=== PATIENT | male | born 1955 | race Caucasian/White ===

== ENCOUNTER → 2016-06-27 | Outpatient (CLI) | payer OTHER ==
[~2016-06-27] MED LIST: ASPI-113 PO; CLB/200 PO; LRT5 PO; LSN/10125 PO; OXYC-409 PO
[2016-06-27 12:51] LABS: HEMATOCRIT 46.3 % (42-52); MEAN CELL VOLUME 90.3 fL (80-100); MEAN CORPUSCULAR HEMOGLOBIN 31.4 pg (25-34); MEAN CORPUSCULAR HGB CONC 34.8 g/dl (32-36); MEAN PLATELET VOLUME 10.5 fL (7.4-10.4); PLATELET COUNT 217 K/uL (130-400); RED BLOOD COUNT 5.13 M/uL (4.7-6.1)
[2016-06-27 13:19] LABS: ALT/SGPT 37 U/L (12-78); BLOOD UREA NITROGEN 16 mg/dl (7-18); BUN/CREATININE RATIO 17.3 (10-20); CARBON DIOXIDE 26 mmol/L (21-32); CHLORIDE 106 mmol/L (98-107); CHOLESTEROL 141 mg/dl (0-200); CREATININE 0.92 mg/dl (0.60-1.40); GLUCOSE 96 mg/dl (70-99); POTASSIUM 3.8 mmol/L (3.5-5.1); SODIUM 141 mmol/L (136-145); TRIGLYCERIDES 130 mg/dl (0-150); VERY LOW DENSITY LIPOPROT CALC 26 mg/dl
[2016-06-27 13:23] LABS: ALB/GLOB RATIO 1.3 (0.9-2); ALKALINE PHOSPHATASE 91 U/L (45-117); AST/SGOT 20 U/L (15-37); CHOLESTEROL/HDL RATIO 2.9; HDL CHOLESTEROL 49 mg/dl; LDL CHOLESTEROL CALCULATED 66 mg/dl
== END | disposition home or self-care (01) ==
LOC: C.LABPBG 08:51
PROVIDERS: ATTEND Internal Medicine Geriatric Medicine
DX: Z00.00 Encounter for general adult medical examination without abnormal findings (principal); I10 Essential (primary) hypertension; F52.8 Other sexual dysfunction not due to a substance or known physiological condition

== ENCOUNTER → 2017-03-13 | Day surgery (SDC) | payer OTHER ==
[2017-03-06 07:57] VITALS: BMI 28.0
[~2017-03-13] VITALS: Ht 175.3 cm; Wt 88.6 kg
[~2017-03-13] MED LIST changes: +ALBUT/IPRATROP 3MG/0.5MG NEB 3 ML VIAL INH SCH; -ASPI-113 PO; -CLB/200 PO; +LIDOCAINE HCL 2% 2 ML VIAL (20MG/ML) ONE; -LRT5 PO; +MIDAZOLAM HCL 1 MG/ML 2ML VIAL ONE; -OXYC-409 PO; +PROPOFOL IV EMULSION 10 MG/ML 20 ML VIAL IV ONE; +SODIUM CHLORIDE 0.9% 500ML 500 ML IV ONE
[2017-03-13 09:27] VITALS: Ht 175.3 cm; Wt 88.6 kg
--- NOTE | 2017-03-13 09:41 | Endo History and Physical ---
History & Physical Date of Service: Mar 13, 2017. Chief Complaint: SCREENING FOR COLON CANCER Referring Physician: JAMISON MILLER History of Present Illness 61 yo CM who presents for screening colonoscopy. Past Surgical History Hx Cardiac Surgery: No Hx Internal Defibrillator: No Hx Pacemaker: No Hx Abdominal Surgery: Yes (APPY) Hx of Implantable Prosthesis: No Hx Post-Op Nausea and Vomiting: No Hx Cancer Surgery: No Hx Thoracic Surgery: No Hx Orthopedic: Yes (RT/LT MIGUEL ANGEL) Hx Urinary Tract Surgery: No Family History None Social History Smoking Status: Never Smoker Hx Substance Use: No Hx Alcohol Use: No Allergies Coded Allergies: Chlorhexidine (Verified Allergy, Mild, red blotchy areas where applied, ) pt denies any pruritis associated with reddened areas Current Medications Reported Home Medications Medications Dose Route/Sig Max Daily Dose Days Date Category Lisinopril/Hctz 03/01.5 Mg (HCTZ/Lisinopril) 1 Ea Tab 1 Tab PO QAM 02/22/12 Reported Vital Signs Weight (Kilograms): 88.64 Height (Feet): 5 Height (Inches): 9 Date Time Temp Pulse Resp B/P (MAP) Pulse Ox O2 Delivery O2 Flow Rate FiO2 03/13/17 09:37 36.6 60 18 117/81 (93) 96 Room Air Physical Exam General Appearance: WD/WN, no apparent distress Respiratory/Chest: Auscultation: breath sounds normal Cardiovascular: Heart Auscultation: RRR Abdomen: Bowel Sounds: normal Inspection & Palpation: soft, non-distended, no tenderness, guarding & rebound Assessment and Plan Assessment: 61 yo CM who presents for screening colonoscopy. Plan: Proceed with colonoscopy.
--- NOTE | 2017-03-13 10:19 | GI REPORT ---
Procedure Date: 03/13/2017 9:51 AM Procedure: Colonoscopy Indications: Screening for colorectal malignant neoplasm Medicines: Monitored Anesthesia Care Complications: No immediate complications. Estimated Blood Loss: Estimated blood loss: none. Procedure: Pre-Anesthesia Assessment: - Prior to the procedure, a History and Physical was performed, and patient medications and allergies were reviewed. The patient's tolerance of previous anesthesia was also reviewed. The risks and benefits of the procedure and the sedation options and risks were discussed with the patient. All questions were answered, and informed consent was obtained. Prior Anticoagulants: The patient has taken no previous anticoagulant or antiplatelet agents. ASA Grade Assessment: II - A patient with mild systemic disease. After reviewing the risks and benefits, the patient was deemed in satisfactory condition to undergo the procedure. After I obtained informed consent, the scope was passed under direct vision. Throughout the procedure, the patient's blood pressure, pulse, and oxygen saturations were monitored continuously. The scope was introduced through the anus and advanced to the terminal ileum. The colonoscopy was performed without difficulty. The patient tolerated the procedure well. The quality of the bowel preparation was good. The terminal ileum, ileocecal valve, appendiceal orifice, and rectum were photographed. Findings: A 4 mm polyp was found in the transverse colon. The polyp was sessile. The polyp was removed with a cold snare. Resection and retrieval were complete. Multiple small-mouthed diverticula were found in the sigmoid colon. Non-bleeding internal hemorrhoids were found during retroflexion. The hemorrhoids were small. Impression: - One 4 mm polyp in the transverse colon, removed with a cold snare. Resected and retrieved. - Diverticulosis in the sigmoid colon. - Non-bleeding internal hemorrhoids. Recommendation: - Resume previous diet. - Continue present medications. - Repeat colonoscopy for surveillance based on pathology results. - Return to primary care physician as previously scheduled. Juan Ramirez DO 03/13/2017 10:18:57 AM This report has been signed electronically. Note Initiated On: 03/13/2017 9:51 AM I attest to the content of the Intraoperative Record and orders documented therein, exceptions below
[2017-03-13 10:36] VITALS: PULSE 76; O2SAT 90
[2017-03-13 11:04] VITALS: BP 122/86; PULSE 81
--- NOTE | 2017-03-13 11:10 | Discharge Instructions ---
Endoscopy Patient Instructions Date / Procedure(s) Performed Mar 13, 2017. Colonoscopy Allergy Information Coded Allergies: Chlorhexidine (Verified Allergy, Mild, red blotchy areas where applied, ) pt denies any pruritis associated with reddened areas Discharge Date / Findings Mar 13, 2017. Colon polyp Diverticulosis Internal hemorrhoids Medication Instructions OK to resume all medications today as prescribed Reported Home Medications Medications Dose Route/Sig Max Daily Dose Days Date Category Lisinopril/Hctz 03/01.5 Mg (HCTZ/Lisinopril) 1 Ea Tab 1 Tab PO QAM 02/22/12 Reported Provider Instructions Activity Restrictions - No exercising or heavy lifting for 24 hours. - Do not drink alcohol the day of the procedure. - Do not drive a car or operate machinery until the day after the procedure. - Do not make any important decisions or sign important papers in 24 hours after the procedure. Following Day: - Return to full activity which may include returning to work/school. Diet Start your diet with liquids and light foods (jello, soup, juice, toast). Then eat your usual diet if not nauseated. Treatment For Common After Affects For mild abdominal pain, bloating, or excessive gas: - Rest - Eat lightly - Lie on right side Follow-Up Information Follow-up with JAMISON MILLER as scheduled Anesthesia Information What You Should Know You have had a procedure that required some medicine to reduce anxiety and discomfort. This treatment is called moderate sedation. After receiving the treatment, you may be sleepy, but you will be able to breathe on your own. The effects of the treatment may last for several hours. Follow these instructions along with Activity/Diet recommendations noted above: * Do NOT do anything where dizziness or clumsiness would be dangerous. * Rest quietly at home today, then you can be up and about tomorrow. * Have a responsible person stay with you the rest of today. * You may have had an I.V. today. If so, you may take the dressing off later today. Recommendations Call your doctor if: * Trouble breathing * Continuous vomiting for more than 24 hours * Temperature above 101 degrees * Severe abdominal pain or bloating * Pain not relieved by pain medicine ordered * There is increased drainage or redness from any incision * A large amount of rectal bleeding greater than 2-3 tablespoons. (If you had a polyp/s removed or have hemorrhoids, a small amount of blood - from the rectum is to be expected.) * You have any unanswered questions or concerns. IN THE EVENT OF A SERIOUS EMERGENCY, GO TO THE NEAREST EMERGENCY ROOM Your discharge instructions were prepared by provider Juan Ramirez. Patient Instructions Signature Page Shelia Modi Patient (or Guardian) Signature/Date: I have read and understand the instructions given to me by my caregivers. Caregiver/RN/Doctor Signature/Date: The above-named patient and/or guardian has received patient instructions on this date. + Original Patient Signature Page (only) stays with chart. Please make copy for patient.
[2017-03-13 11:30] VITALS: O2SAT 90
--- NOTE | 2017-03-13 11:35 | DIAGNOSTIC IMAGING REPORT ---
CHEST ONE VIEW PORTABLE CLINICAL HISTORY: possible aspiration dyspnea COMPARISON STUDY: No previous studies for comparison. FINDINGS: The bones soft tissues and hemidiaphragms are normal. The cardiomediastinal silhouette is normal. The lungs are clear. The pulmonary vasculature is normal. IMPRESSION: Negative chest. The above report was generated using voice recognition software. It may contain grammatical, syntax or spelling errors. Electronically signed by: Bhupendra Smith M.D. 03/13/2017 11:34 AM Dictated Date/Time: 03/13/2017 11:34 AM
--- NOTE | 2017-03-13 12:26 | Anesthesiology Progress Note ---
Anesthesia Post Op Note Date & Time Mar 13, 2017 at 12:23 Vital Signs Pain Intensity: 0 Vital Signs Past 12 Hours Date Time Temp Pulse Resp B/P (MAP) Pulse Ox O2 Delivery O2 Flow Rate FiO2 03/13/17 11:30 90 Room Air 03/13/17 11:04 81 18 122/86 (98) 92 Nasal Cannula 3 03/13/17 10:39 78 18 101/80 (87) 95 Nasal Cannula 3 03/13/17 10:36 76 16 90 Nasal Cannula 3.0 03/13/17 10:24 78 18 120/85 (97) 91 Room Air 03/13/17 09:37 36.6 60 18 117/81 (93) 96 Room Air Notes Mental Status: alert / awake / arousable, participated in evaluation Pt Amnestic to Procedure: Yes Nausea / Vomiting: adequately controlled Pain: adequately controlled Airway Patency, RR, SpO2: stable & adequate BP & HR: stable & adequate Hydration State: stable & adequate Anesthetic Complications: no major complications apparent Anesthetic Complications: During GI procedure, patient began coughing. Secretions were clear, but patient woke up with b/l wheezing and cough. In PACU, patient had continued oxygen needs despite aggressive pulmonary toilet, duoneb, and IS. CXR ordered to assess for aspiration pneumonia. CXR shows NAD. Able to wean patient off oxygen shortly after CXR with additional IS and pulmonary toilet. Oxygen sat consistently above 92 during last 30 minutes in PACU without oxygen. Discharged home with follow-up instructions.
== END | disposition home or self-care (01) ==
LOC: C.GI 09:01
PROVIDERS: ATTEND Internal Medicine
DX: Z12.11 Encounter for screening for malignant neoplasm of colon (principal); D12.3 Benign neoplasm of transverse colon; K57.30 Diverticulosis of large intestine without perforation or abscess without bleeding; K64.8 Other hemorrhoids; Z79.899 Other long term (current) drug therapy